=== PATIENT | female | born 1960 | race Caucasian/White ===

== ENCOUNTER 2016-06-21 18:57 | Emergency (ER) | payer MEDICAID, OTHER ==
[~2016-06-21] VITALS: Ht 167.6 cm; Wt 130.0 kg
[~2016-06-21 18:57] MED LIST: ALBU1AER INH; ATEN-102 PO; CITA20 PO
[2016-06-21 18:59] VITALS: BP 155/83; PULSE 68; RESP 16; TEMP 97.7; O2SAT 96
--- NOTE | 2016-06-21 19:25 | PD ---
HPI Chief Complaint: Pain: Acute or Chronic Time Seen by Provider: 19:18 Travel History International Travel<30 days: No Contact w/Intl Traveler<30days: No Traveled to known affect area: No History of Present Illness HPI 56-year-old female presents for evaluation of right knee pain. Symptoms started to 3 weeks ago. She describes it as a pressure in her right knee joint and also seems to radiate into the thigh. Pain is worse when she attempts to bend the knee or when she attempts to walk. Symptoms have persisted which prompted evaluation today. She has not yet seen her primary care physician about this issue. She denies any trauma or recent increase in activity. 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 She also notes that at the end of April/beginning of May she was on a cruise. She does not recall doing anything particularly strenuous on the cruise. No history of gouty arthritis. She denies any other associated symptoms. She has no other complaints. PFSH Past Medical History Arthritis: Yes (R/A) Heart Rhythm Problems: No Cancer: No Cardiac Catheterization: No Cardiovascular Problems: Yes ( htn) High Cholesterol: No Congestive Heart Failure: Yes COPD: Yes Diabetes: No Diminished Hearing: No Endocrine: No Genitourinary: No Hypertension: Yes Immune Disorder: No Musculoskeletal: Yes Neurologic: No Psychiatric: No Reproductive: Yes (UTERINE FIBROIDS, CYSTS ) Respiratory: Yes (BRONCHITIS) Influenza Vaccination: No ?: Not : 2 Para: 1 Miscarriage: 1 Tubal Ligation: Yes Past Surgical History Abdominal Surgery: No Cardiac Surgery: No Section: Yes (1) Coronary Artery Bypass Graft: No Ear Surgery: No Endocrine Surgery: No Eye Surgery: No Genitourinary Surgery: No Hysterectomy: Yes Oral Surgery: No Thoracic Surgery: No Tonsillectomy: Yes Other Surgery: Yes (SINUSES) Family History Family Myocardial Infarction: Yes Social History Alcohol Use: Yes (rare) Tobacco Use: Yes (1/2 ppd) Substance Use: No Allergies-Medications (Allergen,Severity, Reaction): Coded Allergies: Codeine (Verified Allergy, Severe, VOMITING, 06/21/16) Dilaudid (Verified Adverse Reaction, Severe, RESPIRATORY, 06/21/16) OXYGEN DESATURATION Reported Meds & Prescriptions Reported Meds & Active Scripts Active Diclofenac Sodium DR (Diclofenac Sodium) 75 Mg Tabdr 75 Mg PO BID 10 Days Reported Celexa (Citalopram Hydrobromide) 20 Mg Tab 20 Mg PO DAILY Atenolol 50 Mg Tab 50 Mg PO DAILY Proair Hfa 8.5 GM Inh (Albuterol Sulfate) 90 Mcg/Act Aer 2 Puff INH Q6H PRN 108 mcg/actuation Review of Systems General / Constitutional: No: Fever, Chills Cardiovascular: No: Chest Pain or Discomfort Respiratory: No: Shortness of Breath Musculoskeletal: Positive: Myalgias, Arthralgias, Limited ROM, Pain Skin: No Rash Physical Exam Narrative GENERAL: Well-developed well-nourished female in no acute distress SKIN: Warm and dry. HEAD: Atraumatic. Normocephalic. EYES: Pupils equal and round. No scleral icterus. No injection or drainage. ENT: No nasal bleeding or discharge. Mucous membranes pink and moist. NECK: Trachea midline. No JVD. CARDIOVASCULAR: Regular rate and rhythm. No murmur appreciated. RESPIRATORY: No accessory muscle use. Clear to auscultation. Breath sounds equal bilaterally. GASTROINTESTINAL: Abdomen soft, non-tender, nondistended. Hepatic and splenic margins not palpable. MUSCULOSKELETAL: There appears to be a slight knee effusion in the right knee when compared to the left. There is no lower extremity pitting edema. There is tenderness to palpation generalized to the right knee joint as well as mild tenderness to palpation to the right thigh. The patient is able to perform range of motion activities with both knees. She does have pain with right knee range of motion. She is able to extend to approximately 170 with the right knee. The right knee joint is not erythematous. 5 out of 5 muscle strength dorsi and plantar flexion bilaterally. 2+ dorsalis pedis and posterior tibial pulses bilaterally. NEUROLOGICAL: Awake and alert. No obvious cranial nerve deficits. Motor grossly within normal limits. Normal speech. Data Data Last Documented VS Vital Signs Date Time Temp Pulse Resp B/P Pulse Ox O2 Delivery O2 Flow Rate FiO2 06/21/16 18:59 97.7 68 16 155/83 96 Room Air Orders Us Leg Venous Doppler (06/21/16 19:22) Knee, Complete (4vws) (06/21/16 ) Ibuprofen (Motrin) (06/21/16 19:30) Splint Or Brace Apply/Monitor (06/21/16 21:02) Crutches (06/21/16 21:02) MDM Medical Decision Making Medical Screen Exam Complete: Yes Emergency Medical Condition: Yes Medical Record Reviewed: Yes Differential Diagnosis Right knee tendinitis, sprain, ligamentous disruption, septic arthritis, inflammatory arthritis, DVT Narrative Course This is a 56-year-old male who went on a cruise at the beginning of the month. She presents now with 2-3 weeks of right knee and thigh pain. Her pain is mostly in the right knee and there appears to be a slight knee effusion. There is no lower extremity pitting edema. There is no evidence of a septic joint. Plan is for ultrasound of the right leg and right knee x-ray. She will be given ibuprofen for pain. Doppler ultrasound is negative for DVT. X-ray reveals joint effusion, otherwise negative. The plan will be to treat the patient with NSAIDs, immobilization and outpatient follow-up with primary care physician. Discussed signs and symptoms were returning to the emergency room. She is stable for discharge. Diagnosis Primary Impression: Effusion, right knee Additional Instructions: Crutches and knee immobilizer as needed. Avoid strenuous activity. Diclofenac with meals as needed for pain. Follow-up with primary care physician in one to 2 weeks for recheck. Return for any acutely new or worsening symptoms. Med/Other Pt SpecificInfo: Prescription(s) given, Orthopedic Instructions Scripts Diclofenac Sodium DR 75 Mg Tabdr75 Mg PO BID 10 Days Ref 0 Prov:Tyron Garcias MD 06/21/16 Disposition: 01 DISCHARGE HOME Condition: Stable Balbir Gardner Jun 21, 2016 19:25
[2016-06-21] MEDS ORDERED: IBUPROFEN 800 MG TAB PO ONE (19:30)
[2016-06-21] MEDS ORDERED: ALBUAER3 INH (19:34)
[2016-06-21] MEDS ORDERED: CELE20TA PO (19:34)
[2016-06-21] MEDS ORDERED: ATEN50TA PO (19:34)
--- NOTE | 2016-06-21 19:55 | RADRPT ---
EXAM DATE/TIME: 06/21/2016 19:39 [facility] COMPARISON: No previous studies available for comparison. INDICATIONS : Right knee pain, no known injury. MEDICAL HISTORY : None. SURGICAL HISTORY : None. ENCOUNTER: Initial ACUITY: 2 weeks PAIN SCORE: 9/10 LOCATION: Right knee. FINDINGS: Bones of the right knee are osteopenic. No fracture or subluxation demonstrated. There is very mild 3 compartment joint space narrowing. A large suprapatellar joint effusion is evident. CONCLUSION: Mild degenerative changes and a large nonspecific joint effusion. No fracture or subluxation. Yevgeniy Oliveira MD on June 21, 2016 at 19:52 Board Certified Radiologist. This report was verified electronically.
--- NOTE | 2016-06-21 20:57 | RADRPT ---
EXAM DATE/TIME: 06/21/2016 20:14 [facility] COMPARISON: No previous studies available for comparison. INDICATIONS : Right leg pain. MEDICAL HISTORY : Chronic obstructive pulmonary disease. Congestive heart failure. Hypertension. Bronchitis. Uterine fibroids. Ovarian cysts. . Rheumatoid arthritis. Measles. Blood transfusion. SURGICAL HISTORY : Tonsillectomy. section. Hysterectomy. Sinus surgery. Tubal ligation. ENCOUNTER: Initial ACUITY: 2 weeks PAIN SCORE: 2/10 LOCATION: Right leg. TECHNIQUE: Venous ultrasound of the leg was performed from the inguinal ligament to the proximal calf. Real-alla e, color Doppler and spectral tracing, compression and augmentation techniques were used. FINDINGS: There is normal compressibility of the deep venous system from the inguinal region to the proximal ca lf. No echogenic clot is seen in the lumen of the common femoral, femoral, popliteal, and posterior tibial veins. There is a normal response of the venous system to proximal and distal augmentation an d respiration. CONCLUSION: Normal. No right lower extremity DVT. Yevgeniy Oliveira MD on June 21, 2016 at 20:56 Board Certified Radiologist. This report was verified electronically.
[2016-06-21] MEDS ORDERED: DICL75TA PO (21:04)
== END 2016-06-21 21:38 | disposition home or self-care (01) ==
LOC: NEPK 18:57
DX: M25.461 Effusion, right knee (principal); M79.651 Pain in right thigh; I10 Essential (primary) hypertension; F17.200 Nicotine dependence, unspecified, uncomplicated; Z87.39 Personal history of other diseases of the musculoskeletal system and connective tissue; Z86.79 Personal history of other diseases of the circulatory system; Z87.09 Personal history of other diseases of the respiratory system
CPT/HCPCS: 73564; 93971; 99284; E0113; L1830